=== PATIENT | female | born 1980 | race Caucasian/White ===

== ENCOUNTER 2020-05-08 14:17 | Emergency (ER) | payer SELFPAY ==
[~2020-05-08] VITALS: Ht 152.4 cm; Wt 56.7 kg
[~2020-05-08 14:17] MED LIST: HYDROCODON-ACE1 EA11 PO
[2020-05-08] MEDS ORDERED: CEFTRIAXONE SOD 500 MG VIAL IM ONE (15:00)
[2020-05-08] MEDS ORDERED: DOXYCYCLINE HY100 MG PO (15:10)
[2020-05-08] MEDS ORDERED: LIDOCAINE HCL 1% LOCAL INJ 20 ML VIAL ONE (15:18)
[2020-05-08] MEDS ORDERED: CEFTRIAXONE SOD 500 MG VIAL ONE (15:18)
== END 2020-05-08 15:30 | disposition home or self-care (01) ==
LOC: ER 14:40
DX: A74.9 Chlamydial infection, unspecified (principal); N75.0 Cyst of Bartholin's gland
CPT/HCPCS: 87491; 87591; 99284; J0696; J2001

== ENCOUNTER 2020-12-01 15:47 | Emergency (ER) | payer MEDICARE, OTHER ==
[~2020-12-01] VITALS: Ht 157.5 cm; Wt 56.7 kg
[~2020-12-01 15:47] MED LIST changes: +DOXYCYCLINE HY100 MG PO
[2020-12-01] MEDS ORDERED: PREDNISONE20 MG PO (16:00)
== END 2020-12-01 16:07 | disposition home or self-care (01) ==
LOC: ER 15:54
DX: J45.901 Unspecified asthma with (acute) exacerbation (principal); B34.9 Viral infection, unspecified; Z87.891 Personal history of nicotine dependence; Z88.2 Allergy status to sulfonamides; Z20.822 Contact with and (suspected) exposure to COVID-19
CPT/HCPCS: 99282; U0002

== ENCOUNTER 2024-05-04 16:37 | Emergency (ER) | payer OTHER ==
[~2024-05-04] VITALS: Ht 157.5 cm; Wt 49.9 kg
[~2024-05-04 16:37] MED LIST changes: +PREDNISONE20 MG PO
[2024-05-04 17:00] VITALS: PULSE 97; RESP 16; TEMP 98.1
[2024-05-04 17:18] LABS: BASOPHILS # (AUTO) 0.1 (0.0-0.1); BASOPHILS % 0.5 % (0.0-1.0); EOSINOPHILS # (AUTO) 0.1 (0.0-0.4); EOSINOPHILS % 0.9 % (0.0-6.0); HEMATOCRIT 37.5 % (34.2-44.1); HEMOGLOBIN 12.2 g/dL (12.0-16.0); LYMPHOCYTES # (AUTO) 2.9 (1.0-3.2); MEAN CORPUSCULAR HEMOGLOBIN 28.2 pg (28-32); MEAN CORPUSCULAR HGB CONC 32.5 g/dL (31-35); MEAN CORPUSCULAR VOLUME 86.6 fL (81-99); MONOCYTES # (AUTO) 1.2 (0.2-0.8); MONOCYTES % 11.2 % (4.4-11.3); NEUTROPHILS # (AUTO) 6.4 (2.1-6.9); NEUTROPHILS % 60.2 % (38.7-80.0); PLATELET COUNT 329 x10e3/uL (140-360); RED BLOOD COUNT 4.33 x10e6/uL (3.6-5.1); RED CELL DISTRIBUTION WIDTH 13.4 % (11.7-14.4); WHITE BLOOD COUNT 10.55 x10e3/uL (4.8-10.8)
[2024-05-04] MEDS: SODIUM CHLORIDE 0.9% 1000ML 1,000 ML IV STA (17:47)
[2024-05-04 17:55] LABS: ALBUMIN 4.4 g/dL (3.5-5.0); ALBUMIN/GLOBULIN RATIO 1.3 (0.8-2.0); ANION GAP 15.3 mmol/L (8-16); BILIRUBIN,TOTAL 0.6 mg/dL (0.2-1.2); CALCIUM 9.7 mg/dL (8.4-10.2); CREATININE, SERUM 0.79 mg/dL (0.57-1.11); TOTAL PROTEIN 7.9 g/dL (6.5-8.1)
[2024-05-04 17:59] LABS: POTASSIUM 3.3 mmol/L (3.5-5.1)
[2024-05-04 18:00] LABS: TROPONIN I 0.044 ng/mL (0-0.300)
[2024-05-04] MEDS ORDERED: CATAPRES-TTS 11 EACH TD (18:30)
[2024-05-04 18:47] VITALS: BP 120/82; PULSE 115; RESP 19; TEMP 98.4; O2SAT 98
== END 2024-05-04 18:59 | disposition home or self-care (01) ==
LOC: ER 16:47
DX: F11.23 Opioid dependence with withdrawal (principal); R53.81 Other malaise; E03.9 Hypothyroidism, unspecified
CPT/HCPCS: 36415; 80053; 80320; 82550; 83690; 83880; 84484; 85025; 93005; 99283; J7030

== ENCOUNTER → 2024-06-26 | Day surgery (SDC) | payer OTHER ==
[2024-06-24 10:04] LABS: BASOPHILS # (AUTO) 0.1 (0.0-0.1); BASOPHILS % 0.7 % (0.0-1.0); EOSINOPHILS # (AUTO) 0.2 (0.0-0.4); EOSINOPHILS % 2.6 % (0.0-6.0); HEMATOCRIT 38.1 % (34.2-44.1); LYMPHOCYTES # (AUTO) 2.2 (1.0-3.2); LYMPHOCYTES % 31.9 % (18.0-39.1); MEAN CORPUSCULAR HEMOGLOBIN 27.6 pg (28-32); MEAN CORPUSCULAR HGB CONC 31.5 g/dL (31-35); MEAN CORPUSCULAR VOLUME 87.6 fL (81-99); MONOCYTES # (AUTO) 0.7 (0.2-0.8); MONOCYTES % 10.6 % (4.4-11.3); NEUTROPHILS # (AUTO) 3.7 (2.1-6.9); NEUTROPHILS % 54.1 % (38.7-80.0); PLATELET COUNT 302 x10e3/uL (140-360); RED BLOOD COUNT 4.35 x10e6/uL (3.6-5.1); RED CELL DISTRIBUTION WIDTH 13.5 % (11.7-14.4)
[2024-06-24 10:25] LABS: INR 0.95; PROTHROMBIN TIME 13.3 seconds (11.9-14.5)
[2024-06-24 10:27] LABS: ALBUMIN 4.1 g/dL (3.5-5.0); ALBUMIN/GLOBULIN RATIO 1.6 (0.8-2.0); ANION GAP 13.1 mmol/L (8-16); BILIRUBIN,TOTAL 0.6 mg/dL (0.2-1.2); CALCIUM 9.2 mg/dL (8.4-10.2); CREATININE, SERUM 0.82 mg/dL (0.57-1.11); POTASSIUM 4.1 mmol/L (3.5-5.1); TOTAL PROTEIN 6.7 g/dL (6.5-8.1)
[~2024-06-26] MED LIST changes: +ALBUTEROL0.63 MG/3 NEB; +CATAPRES-TTS 11 EACH TD; +FENTANYL CITRATE/PF 100MCG/2 ML INJ ONE; +GLUCAGON FOR INJ 1 MG VIAL ONE; +HYOSCYAMINE SULFATE 0.5 MG/ML INJ ONE; +LIDOCAINE HCL 2% LOCAL INJ 5 ML SDV VIAL INJ ONE; +PHENYLEPHRINE HCL 1% 10 MG/ML VIAL ONE; +PROPOFOL IV EMULSION 10 MG/ML 20 ML VIAL ONE; +PROPOFOL IV EMULSION 50 ML IV ONE; +SEVOFLURANE INHAL SOLN 250 ML PEN BTL ONE
[2024-06-26] MEDS: LACTATED RINGER'S 1,000 ML ONE (11:18)
[2024-06-26 15:30] VITALS: TEMP 98.8
[2024-06-26 16:00] VITALS: BP 117/81; PULSE 87; RESP 16; O2SAT 99
== END | disposition home or self-care (01) ==
LOC: OR 10:07
PROVIDERS: ATTEND Internal Medicine Gastroenterology
DX: R14.0 Abdominal distension (gaseous) (principal); D12.5 Benign neoplasm of sigmoid colon; K64.8 Other hemorrhoids; Z71.3 Dietary counseling and surveillance; B19.20 Unspecified viral hepatitis C without hepatic coma; R74.8 Abnormal levels of other serum enzymes; J45.909 Unspecified asthma, uncomplicated; F90.9 Attention-deficit hyperactivity disorder, unspecified type; Z71.89 Other specified counseling; F17.290 Nicotine dependence, other tobacco product, uncomplicated; Z88.2 Allergy status to sulfonamides; Z01.812 Encounter for preprocedural laboratory examination; Z79.899 Other long term (current) drug therapy; Z80.0 Family history of malignant neoplasm of digestive organs
CPT/HCPCS: 36415; 45385; 80053; 81025; 85025; 85610; 85730; J1610; J1980; J2003; J2371; J2704 ×2; J3010; J7121; 45378

== ENCOUNTER → 2024-06-28 | Outpatient (REF) | payer OTHER ==
[~2024-06-28] MED LIST changes: -FENTANYL CITRATE/PF 100MCG/2 ML INJ ONE; -GLUCAGON FOR INJ 1 MG VIAL ONE; -HYOSCYAMINE SULFATE 0.5 MG/ML INJ ONE; -LIDOCAINE HCL 2% LOCAL INJ 5 ML SDV VIAL INJ ONE; -PHENYLEPHRINE HCL 1% 10 MG/ML VIAL ONE; -PROPOFOL IV EMULSION 10 MG/ML 20 ML VIAL ONE; -PROPOFOL IV EMULSION 50 ML IV ONE; -SEVOFLURANE INHAL SOLN 250 ML PEN BTL ONE
== END ==
LOC: US 10:30
PROVIDERS: ATTEND Nurse Practitioner
DX: B19.20 Unspecified viral hepatitis C without hepatic coma (principal)
CPT/HCPCS: 76700